=== PATIENT | male | born 1975 | race Two or more races ===

== ENCOUNTER 2017-09-28 21:58 | Emergency (ER) | payer OTHER ==
[2017-09-28] MEDS ORDERED: predniSONE 20 MG TABLET (22:40)
[2017-09-28] MEDS ORDERED: diphenhydrAMINE HCL 25 MG CAPSULE PO (22:40)
[2017-09-28] MEDS ORDERED: FAMOTIDINE 20 MG TABLET. (22:40)
[2017-09-28] MEDS: FAMOTIDINE 20 MG TABLET. PO (22:44)
[2017-09-28] MEDS: predniSONE 10 MG TABLET PO (22:45)
[2017-09-28] MEDS: diphenhydrAMINE HCL 25 MG CAPSULE PO (22:45)
== END 2017-09-28 23:01 | disposition home or self-care (01) ==
LOC: ER 21:58
DX: L50.9 Urticaria, unspecified (principal)
CPT/HCPCS: 99284; J7512; Q0163

== ENCOUNTER 2018-02-01 08:53 | Emergency (ER) | payer BC, OTHER ==
[~2018-02-01] VITALS: Ht 175.3 cm; Wt 72.6 kg
[~2018-02-01 08:53] MED LIST: PRED50TA PO
[2018-02-01 09:02] VITALS: BP 140/89
[2018-02-01] MEDS ORDERED: KETOROLAC 60 MG/2 ML INJ. IM ONE (09:15)
[2018-02-01] MEDS ORDERED: ORPHENADRINE CITRATE 60 MG/2 ML VIAL. IM ONE (09:15)
--- NOTE | 2018-02-01 09:16 | PHYS DOC ---
Past Medical History Past Medical History: No Pertinent History Past Surgical History: Other Additional Past Surgical Histo: HERNIA Alcohol Use: Occasionally Drug Use: Marijuana Adult General Chief Complaint Chief Complaint: BACK PAIN OR INJURY HPI HPI Patient is a 42 year old male who presents to the emergency department with complaints of right knee, and mid to low back pain after slip and fall on ice yesterday. Patient states that he twisted his right knee and fell backwards onto his back. He denies any head injury, neck pain, loss of consciousness, nausea, vomiting, saddle anesthesia, or loss of bowel or bladder control. Patient states he is taking 2 tablets of ibuprofen last night and again this morning for relief of his pain with no reduction of his symptoms. Patient states that he felt something pop in his right knee. He reports increased pain with straightening of his right leg and states that the pain is shooting down from his knee to his foot. Review of Systems Review of Systems Constitutional: Denies fever or chills [] GI: Denies abdominal pain, nausea, or vomiting Musculoskeletal: see HPI Integument: Denies rash or skin lesions [] Neurologic: Denies headache, focal weakness; see HPI All other systems were reviewed and found to be within normal limits, except as documented in this note. Current Medications Current Medications Current Medications Medications (Trade) Dose Ordered Sig/Radha Start Time Stop Time Status Last Admin Dose Admin Ketorolac Tromethamine (Toradol Im) 30 mg 1X ONCE 02/01/18 09:15 02/01/18 09:16 DC 02/01/18 09:35 30 MG Orphenadrine Citrate (Norflex) 60 mg 1X ONCE 02/01/18 09:15 02/01/18 09:16 DC 02/01/18 09:36 60 MG Allergies Allergies Allergies Coded Allergies Type Severity Reaction Last Updated Verified No Known Drug Allergies 09/28/17 No Physical Exam Physical Exam Constitutional: Well developed, well nourished, no acute distress, non-toxic appearance. [] HENT: Normocephalic, atraumatic, bilateral external ears normal,nose normal. [] Eyes: PERRLA, conjunctiva normal, no discharge. [] Neck: Normal range of motion, no tenderness, supple, no stridor. [] Cardiovascular:Heart rate regular rhythm, no murmur [] Lungs & Thorax: Bilateral breath sounds clear to auscultation [] Skin: Warm, dry, no erythema, no rash. [] Back: no bony tenderness, left paraspinal thoracic tenderness, bilateral lumbar paraspinal tenderness Extremities: No cyanosis, no clubbing, 1+ swelling to right medial knee, R knee tenderness to palpation, decreased ROM of R knee due to pain; negative anterior and posterior drawer testing of R knee, increased pain with valgus stress of R knee Neurologic: Alert and oriented X 3, normal motor function, normal sensory function, no focal deficits noted. [] Psychologic: Affect normal, judgement normal, mood normal. [] Current Patient Data Vital Signs Vital Signs Date Time Temp Pulse Resp B/P (MAP) Pulse Ox O2 Delivery O2 Flow Rate FiO2 02/01/18 09:02 98.4 83 18 140/89 (106) 96 Room Air 98.4 EKG EKG [] Radiology/Procedures Radiology/Procedures PROCEDURE: KNEE RIGHT 3V Right knee, 3 views, 02/01/2018: HISTORY: Fall, knee pain There is mild patchy bony demineralization. No fracture or dislocation is identified. No significant joint effusion is evident. IMPRESSION: No acute bony abnormality is detected.[] Course & Med Decision Making Course & Med Decision Making Pertinent Labs and Imaging studies reviewed. (See chart for details) Dx: fall, back strain, right knee pain Pt was given 30 mg toradol and 60 mg of IM norflex. Reports relief of pain with medications. Prescriptions for naproxen and orphenadrine were given. A knee immobilizer was placed on R knee, and crutches given. Follow up with Dr. Bryson if sx persist. Return to ER if symptoms worsen. Patient's andPatient verbalized an understanding of home care, medications, follow-up, and return to ED instructions and was in agreement with the plan of care. [] Dragon Disclaimer Dragon Disclaimer This electronic medical record was generated, in whole or in part, using a voice recognition dictation system. Departure Departure Impression: Primary Impression: Fall from slipping on ice Additional Impressions: Right knee pain Back pain Acute upper back pain Disposition: HOME, SELF-CARE Condition: STABLE Referrals: YOU MARRERO MD (PCP) MAGDY BRYSON II, MD Patient Instructions: Back Pain, Adult, [id number], Knee Pain, [id number] Additional Instructions: Fill prescription(s) and use as directed. Recommend application of ice, elevation, and rest of affected extremity. Wear the knee immobilizer that was placed and use the provided crutches until follow up appointment with Dr. Bryson. Return to the ER if your symptoms worsen. Scripts Orphenadrine Citrate (ORPHENADRINE CITRATE) 100 Mg Tablet.er 100 MG PO BID PRN for PAIN for 10 Days, #20 TAB.SR 0 Refills Prov: MICHAEL TENORIO CLASSIFICATION CASE MANAGER 02/01/18 Naproxen (NAPROXEN) 500 Mg Tablet 1 TAB PO BID for 10 Days, #20 TAB 0 Refills Prov: MICHAEL TENORIO CLASSIFICATION CASE MANAGER 02/01/18 Problem Qualifiers Primary Impression: Fall from slipping on ice Encounter type: initial encounter Qualified Codes: W00.9XXA - Unspecified fall due to ice and snow, initial encounter Additional Impressions: Right knee pain Chronicity: acute Qualified Codes: M25.561 - Pain in right knee Back pain Back pain location: low back pain Chronicity: acute Back pain laterality: bilateral Sciatica presence: without sciatica Qualified Codes: M54.5 - Low back pain MICHAEL TENORIO CLASSIFICATION CASE MANAGER Feb 01, 2018 09:16
--- NOTE | 2018-02-01 10:08 | RAD ---
Right knee, 3 views, 02/01/2018: HISTORY: Fall, knee pain There is mild patchy bony demineralization. No fracture or dislocation is identified. No significant joint effusion is evident. IMPRESSION: No acute bony abnormality is detected. Electronically signed by: Ezequiel Martinez MD (02/01/2018 10:05 AM) [facility]
[2018-02-01] MEDS ORDERED: ORPH100T PO (10:51)
[2018-02-01] MEDS ORDERED: NAPR-514 PO (10:51)
== END 2018-02-01 10:55 | disposition home or self-care (01) ==
LOC: ER 08:53
DX: M54.5 Low back pain (principal); M54.6 Pain in thoracic spine; M25.561 Pain in right knee; G89.11 Acute pain due to trauma; W00.0XXA Fall on same level due to ice and snow, initial encounter; Y93.89 Activity, other specified; Y92.89 Other specified places as the place of occurrence of the external cause; Y99.8 Other external cause status
CPT/HCPCS: 29505; 73562; 96372; 99283; J1885; J2360

== ENCOUNTER → 2018-03-07 | Outpatient (CLI) | payer BC ==
[~2018-03-07] MED LIST changes: +NAPR-514 PO; +ORPH100T PO
--- NOTE | 2018-03-07 13:05 | KCIC ---
MR of the right knee Indication: Right knee sprain, radiating toward the hip. Fell one month ago. Medial pain. Comparison: None are available. Technique: The standard multiplanar sequences are obtained. FINDINGS: Artifact: No significant image degradation. Medial meniscus: Bucket handle tear. Moderate to large sized inner fragment is flipped into the intercondylar notch. Lateral meniscus: Intact. Anterior cruciate ligament: Intact. Posterior cruciate ligament: Intact Medial collateral ligament: Sprain, with partial tearing at its proximal to mid aspect. Lateral structures: * Iliotibial band: Intact. * Lateral collateral ligament: Intact. * Biceps femoris tendon: Intact * Popliteus tendon attachment: Intact Extensive mechanism: * Patellar tendon: Intact * Quadriceps tendon: Intact * Retinacular structures: Mild edema around the patellar attachment of the medial stabilizers. Fluid: Small joint effusion. No significant Howard's cyst. Intra-articular bodies: None visualized Joint compartments * patellofemoral joint: Mild chondral heterogeneity at the medial patella with minimal subchondral cystic change. Mild femoral trochlear chondromalacia. * medial compartment: Mild chondromalacia. * lateral compartment:Intact Bones: No significant lesion or acute fracture. Soft tissue: Unremarkable Impression: 1. Bucket-handle tear of the medial meniscus. 2. Proximal medial collateral ligament sprain. 3. Mild degenerative changes. Electronically signed by: Satnam Cho MD (03/07/2018 1:01 PM) [id number]
== END | disposition home or self-care (01) ==
LOC: KCIC MRI 11:07
PROVIDERS: ATTEND Orthopaedic Surgery Sports Medicine
DX: S83.411A Sprain of medial collateral ligament of right knee, initial encounter (principal); S83.211A Bucket-handle tear of medial meniscus, current injury, right knee, initial encounter; W19.XXXA Unspecified fall, initial encounter; Y93.89 Activity, other specified; Y92.89 Other specified places as the place of occurrence of the external cause; Y99.8 Other external cause status; M94.261 Chondromalacia, right knee
CPT/HCPCS: 73721